=== PATIENT | male | born 1980 | race Two or more races ===

== ENCOUNTER 2019-08-06 14:13 | Emergency (ER) | payer OTHER ==
[~2019-08-06] VITALS: Ht 182.9 cm; Wt 111.1 kg
[~2019-08-06 14:13] MED LIST: KETO10TA2 PO; ORPH100T PO
== END 2019-08-06 17:07 | disposition home or self-care (01) ==
LOC: ER 14:13
DX: B34.9 Viral infection, unspecified (principal); Z03.818 Encounter for observation for suspected exposure to other biological agents ruled out; R53.1 Weakness

== ENCOUNTER 2021-04-18 20:03 | Emergency (ER) | payer OTHER ==
[~2021-04-18] VITALS: Ht 182.9 cm; Wt 99.8 kg
== END 2021-04-18 21:57 | disposition home or self-care (01) ==
LOC: ER 20:03
DX: R07.89 Other chest pain (principal)